=== PATIENT | male | born 1935 | race Caucasian/White ===

== ENCOUNTER 2022-05-02 15:22 | Observation (INO) ==
--- NOTE | 2022-05-02 15:32 | Emergency Department Note ---
Impression & Plan TIA (transient ischemic attack), Hypertension, Hypothyroidism ED Provider Note NAME: NAY LAWRENCE AGE: 87 SEX: M : 1935 ARRIVES VIA: Ambulance INFORMANT: Patient, ED PROVIDER(S): Carlos Kang MD Chief Complaint: Patient mentation, slurred speech HPI: Patient presents due to concern for chest pain and altered mental status. The patient does present from the painstakingly had some left-sided chest pain that lasted about 30 minutes. He did receive 324 of aspirin in route. No additional medications. The patient did have some changes in mentation to work sometimes he was awake and alert and other times not. BSG in route was in the 100s. Patient does state that he takes medication for history of hypertension but does not have his medication list with him and is unsure as to the extent of his meds and medical history given that he is from out of town from the [place] area currently visiting for the football game. Patient denies any current chest pains. The patient states that he might have some difficulty with his words. No prior history of stroke or mini stroke. Additional history was obtained from the daughters upon presentation. The patient was made a code stroke alert. Daughter stated that last known well was at 1:45 AM. The patient states he apparently was not feeling well was having some occasional slurred speech and complaints of some sensory changes in his left hand. Patient did have a loop recorder placed in October. 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 The patient is not on any aspirin Plavix or blood thinning medications. Patient did have intermittent changes in terms of consciousness and alertness. ROS: See HPI for pertinent positives and negatives. A total of 10 systems were reviewed and otherwise negative. Past medical history: See below Surgical history: See below Social history: See below Physical Exam: GENERAL: NAD, non-toxic. EYE EXAM: Normal conjunctiva. PERRL, no anisocoria and EOM's grossly intact w/o pain. NECK: Supple, no nuchal rigidity, no adenopathy, non-tender. No signs of meningismus. FROM of the neck with good chin to chest and neck extension. No stridor. LUNGS: Clear to auscultation. Normal chest wall mechanics. HEART: NSR, no MRG. ABDOMEN: Abdomen soft, non-tender, normo-active bowel sounds, no masses, no rebound or guarding. BACK: No CVA TTP. SKIN: No rashes and no bruising. UPPER EXTREMITIES: Upper extremities are grossly normal. LOWER EXTREMITIES: Grossly normal, no edema. NEURO EXAM: A&O x3, cranial nerves II-XII grossly intact, normal speech, occasionally changed words, moves all 4 extremities. [id number], no drift, no sensory deficits Differential diagnoses: Cardiac ischemia, aortic dissection, pulmonary embolism, pneumothorax, pneumonia, pericarditis, myocarditis, esophageal rupture, GERD, cholecystitis, pancreatitis, musculoskeletal, as well as other pathologies. Course: Patient was seen and evaluated the bedside. Full history physical exam was performed. EKG interpreted by me Normal sinus rhythm, rate of 72, normal intervals, left axis deviation, no obvious ST elevations. Imaging Studies: See Below Cardiac monitoring: An order was placed for continuous cardiac monitoring. The monitor shows a rate of 77 with sinus rhythm. MDM: Patient presents due to concern for chest pain as well as occasional difficulty with words. Code stroke was initiated. The patient did have CT head and CT angiography completed after the patient's creatinine was not elevated on [id number]. Patient CT head and CT angiography head and neck did not show any acute concerning findings. The patient does have some atherosclerosis but nothing intervene able. I did speak with Dr. Tucker initially who did evaluate the patient. After further discussion the patient is not a TNKase candidate. The patient was loaded with Plavix and already did receive aspirin. I did speak with the patient and family member about the findings as well as plan of care. I also did convey the recommendations to Dr. Su the admitting physician. MR brain ordered. This is pending at the time of admission. Past Med/Surg History Medical History Hypertension Hypothyroidism Surgical History History of loop recorder Family History Mother , He age 66 of an [place] Myocardial infarction Father , age 72 of an abdominal aortic aneurysm rupture AAA (abdominal aortic aneurysm, ruptured) Social History Smoking Status: Never smoker Hx Alcohol Use: No Hx Substance Use: No Preferred Language: Macedonian Communication Ability: Effective Car Builder Required: No Beliefs That Will Affect Care: None Current Living Situation: Alone Current Living Situation Comment: lives home alone totally independent with adls and drives current occupational status: retired 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63, [employer] elementary special education assistant Other Information That Helps Us Care for You: No Feels Safe at Home: Yes Safety Concerns: Feels Safe At This Time Assistive Devices: None Allergies Allergies Allergy/AdvReac Type Severity Reaction Status Date / Time No Known Allergies Allergy Unverified 05/02/22 18:05 Home Meds Home Medications Medication Instructions Recorded Confirmed alendronate 35 mg tablet 35 mg PO DAILY 05/02/22 05/02/22 ascorbic acid (vitamin C) 500 mg 500 mg PO DAILY 05/02/22 05/02/22 tablet (Vitamin C) atorvastatin 40 mg tablet 40 mg PO QPM 05/02/22 05/02/22 clopidogrel 75 mg tablet 75 mg PO DAILY 05/02/22 05/02/22 coenzyme Q10 100 mg capsule 200 mg PO DAILY 05/02/22 05/02/22 (CoQ-10) finasteride 5 mg tablet 5 mg PO DAILY 05/02/22 05/02/22 levothyroxine 100 mcg tablet 100 mcg PO DAILY 05/02/22 05/02/22 (Synthroid) magnesium oxide 500 mg tablet 500 mg PO [id number] 05/02/22 05/02/22 metoprolol tartrate 50 mg tablet 50 mg PO BID 05/02/22 05/02/22 multivitamin 1 tab PO DAILY 05/02/22 05/02/22 Previous Rx's Medication Instructions Recorded losartan 25 mg tablet 50 mg PO DAILY #60 tabs 05/03/22 Results & Data (ED) Vital Signs Vital Signs - 24 hr 05/02/22 15:33 05/02/22 15:32 05/02/22 15:46 Temperature 36.8 C Temperature Source Oral Pulse Rate 70 74 78 Pulse Rate from SpO2 Sensor 79 Respiratory Rate 22 20 20 Respiratory Effort / Characteristics Non-Labored Respiratory Depth Normal Blood Pressure 163/93 H 156/92 H 155/75 H Blood Pressure Mean 116 113 101 Blood Pressure Position Lying Pulse Oximetry 99 98 98 Oxygen Delivery Method Room Air Room Air Room Air Sepsis Recent Fever Within 48 Hours No Sepsis New/Unexplained Change in Mental Status No Sepsis Action Taken by Nursing No Action Required 05/02/22 16:00 05/02/22 16:18 05/02/22 16:30 Temperature Temperature Source Pulse Rate 76 84 86 Pulse Rate from SpO2 Sensor 75 85 Respiratory Rate 20 20 17 Respiratory Effort / Characteristics Respiratory Depth Blood Pressure 163/93 H 147/84 H 167/99 H Blood Pressure Mean 116 105 121 Blood Pressure Position Pulse Oximetry 98 98 95 Oxygen Delivery Method Room Air Room Air Room Air Sepsis Recent Fever Within 48 Hours Sepsis New/Unexplained Change in Mental Status Sepsis Action Taken by Long Term Medications Current Medication List: was personally reviewed by me Laboratory Data Attestation: I reviewed the patient's lab results. Result diagrams: 05/03/22 07:37 05/03/22 07:37 Lab Results 05/02/22 05/02/22 05/02/22 Range/Units 15:30 15:30 15:30 WBC 7.83 (4.8-10.8) K/ul RBC 4.43 L (4.63-6.08) M/uL Hgb 13.9 L (14.0-18.0) g/dl POC Hgb (14.0-18.0) g/dl Hct 40.6 (40.1-51.0) % POC Hct (42-52) % MCV 91.6 (80.0-100.0) fL MCH 31.4 (25.0-34.0) pg MCHC 34.2 (32.0-36.0) g/dL RDW Std Deviation 45.8 (36.4-46.3) fL RDW Coeff of Leslie 13.4 (11.5-14.5) % Plt Count 194 (130-400) K/uL MPV 10.4 (9.4-12.4) fL Immature Gran % (Auto) 0.1 % Neut % (Auto) 47.3 % Lymph % (Auto) 31.9 % Carson % (Auto) 14.6 % Eos % (Auto) 5.7 % Baso % (Auto) 0.4 % Neut # (Auto) 3.70 (1.4-6.5) K/uL Lymph # (Auto) 2.50 (1.2-3.4) K/uL Carson # (Auto) 1.14 H (0.24-0.82) K/uL Eos # (Auto) 0.45 (0-0.50) K/uL Baso # (Auto) 0.03 (0-0.2) K/uL Immature Gran # (Auto) 0.01 (0.00-0.02) K/uL PT 11.4 (9.0-12.0) Seconds INR 1.1 (0.9-1.1) APTT 23.6 (21.0-31.0) Seconds PTT Ratio 0.9 POC Sodium (135-144) mmol/L Sodium 136 (136-145) mmol/L POC Potassium (3.3-5.0) mmol/L Potassium 4.2 (3.5-5.1) mmol/L POC Chloride (101-112) mmol/L Chloride 104 (98-107) mmol/L Carbon Dioxide 22 (21-32) mmol/L POC Total CO2 (24-31) mmol/L Anion Gap 10 (3-11) POC Anion Gap (16-25) mmol/L POC BUN (7-18) mg/dl BUN 22 (6-23) mg/dl Creatinine 1.47 H (0.6-1.4) mg/dl POC Creatinine (0.6-1.3) mg/dl Est Cr Clr Drug Dosing 36.1 ml/min Est GFR ( Amer) 49.4 ml/min Est GFR (Non-Af Amer) 42.6 ml/min BUN/Creatinine Ratio 15.0 (10-20) Glucose 119 H (70-99(Fasting)) mg/dl POC Glucose (other) (70-99) mg/dl Calcium 9.5 (8.5-10.1) mg/dl POC Ioniz Calcium Lonny (1.12-1.32) mmol/l Magnesium 2.3 (1.7-2.4) mg/dl Total Bilirubin 0.8 (0.2-1.0) mg/dl AST 29 (13-39) U/L ALT 30 (7-52) U/L Alkaline Phosphatase 63 (34-104) U/L Troponin I High Sens 7.8 (0-20) pg/ml Total Protein 8.0 (6.0-8.3) gm/dl Albumin 4.3 (3.4-5.0) gm/dl Globulin 3.7 (2.5-4.0) gm/dl Albumin/Globulin Ratio 1.2 (0.9-2) Ethyl Alcohol mg/dL (<10.0) mg/dl SARS-CoV-2, RNA, NAAT (NEGATIVE) 05/02/22 05/02/22 05/02/22 Range/Units 15:30 16:01 16:35 WBC (4.8-10.8) K/ul RBC (4.63-6.08) M/uL Hgb (14.0-18.0) g/dl POC Hgb 14.6 (14.0-18.0) g/dl Hct (40.1-51.0) % POC Hct 43 (42-52) % MCV (80.0-100.0) fL MCH (25.0-34.0) pg MCHC (32.0-36.0) g/dL RDW Std Deviation (36.4-46.3) fL RDW Coeff of Leslie (11.5-14.5) % Plt Count (130-400) K/uL MPV (9.4-12.4) fL Immature Gran % (Auto) % Neut % (Auto) % Lymph % (Auto) % Carson % (Auto) % Eos % (Auto) % Baso % (Auto) % Neut # (Auto) (1.4-6.5) K/uL Lymph # (Auto) (1.2-3.4) K/uL Carson # (Auto) (0.24-0.82) K/uL Eos # (Auto) (0-0.50) K/uL Baso # (Auto) (0-0.2) K/uL Immature Gran # (Auto) (0.00-0.02) K/uL PT (9.0-12.0) Seconds INR (0.9-1.1) APTT (21.0-31.0) Seconds PTT Ratio POC Sodium 139 (135-144) mmol/L Sodium (136-145) mmol/L POC Potassium 4.3 (3.3-5.0) mmol/L Potassium (3.5-5.1) mmol/L POC Chloride 105 (101-112) mmol/L Chloride (98-107) mmol/L Carbon Dioxide (21-32) mmol/L POC Total CO2 23 L (24-31) mmol/L Anion Gap (3-11) POC Anion Gap 17.0 (16-25) mmol/L POC BUN 24 H (7-18) mg/dl BUN (6-23) mg/dl Creatinine (0.6-1.4) mg/dl POC Creatinine 1.3 (0.6-1.3) mg/dl Est Cr Clr Drug Dosing ml/min Est GFR ( Amer) ml/min Est GFR (Non-Af Amer) ml/min BUN/Creatinine Ratio (10-20) Glucose (70-99(Fasting)) mg/dl POC Glucose (other) 118 H (70-99) mg/dl Calcium (8.5-10.1) mg/dl POC Ioniz Calcium Lonny 1.19 (1.12-1.32) mmol/l Magnesium (1.7-2.4) mg/dl Total Bilirubin (0.2-1.0) mg/dl AST (13-39) U/L ALT (7-52) U/L Alkaline Phosphatase (34-104) U/L Troponin I High Sens (0-20) pg/ml Total Protein (6.0-8.3) gm/dl Albumin (3.4-5.0) gm/dl Globulin (2.5-4.0) gm/dl Albumin/Globulin Ratio (0.9-2) Ethyl Alcohol mg/dL < 10.0 (<10.0) mg/dl SARS-CoV-2, RNA, NAAT NEGATIVE (NEGATIVE) Administered Medications Atorvastatin Calcium (Atorvastatin 40 Mg Tab) 40 mg PO QPM ANNA Stop: 06/01/22 20:59 Last Admin: 05/02/22 21:09 Dose: 40 mg Documented By: MG Clopidogrel Bisulfate (Clopidogrel Bisulfate 75 Mg Tab) 75 mg PO QAM ANNA Stop: 06/02/22 08:59 Last Admin: 05/03/22 08:45 Dose: 75 mg Documented By: UTE Finasteride (Finasteride 5 Mg Tab) 5 mg PO DAILY ANNA Stop: 06/02/22 08:59 Last Admin: 05/03/22 08:46 Dose: 5 mg Documented By: UTE Heparin Sodium (Porcine) (Heparin Sod 5,000 Unit/0.5 Ml Vial) 5,000 units SQ Q12 ANNA Stop: 06/01/22 20:59 Last Admin: 05/03/22 08:46 Dose: 5,000 units Documented By: Admin: 05/02/22 21:10 Dose: 5,000 units Documented By: MG Levothyroxine Sodium (Levothyroxine Sodium 100 Mcg Tablet) 100 mcg PO DAILYBB ANNA Stop: 06/02/22 06:29 Last Admin: 05/03/22 06:38 Dose: 100 mcg Documented By: MG Losartan Potassium (Losartan Potassium 50 Mg Tab) 50 mg PO DAILY ANNA Stop: 06/02/22 11:29 Last Admin: 05/03/22 12:00 Dose: 50 mg Documented By: UTE Metoprolol Tartrate (Metoprolol Tartrate 50 Mg Tab) 50 mg PO BID ANNA Stop: 06/01/22 20:59 Last Admin: 05/03/22 08:45 Dose: 50 mg Documented By: Admin: 05/02/22 21:09 Dose: 50 mg Documented By: MG Miscellaneous (Alendronate 35mg: Order Awaiting Action) 1 each N/A QS ANNA Stop: 06/02/22 00:00 Last Admin: 05/03/22 07:23 Dose: Not Given Documented By: Admin: 05/02/22 23:31 Dose: Not Given Documented By: MG Discontinued Medications Clopidogrel Bisulfate (Clopidogrel Bisulfate 300 Mg Tab) 300 mg PO NOW STA Stop: 05/02/22 17:15 Last Admin: 05/02/22 19:29 Dose: 300 mg Documented By: VAIBHAV Ioversol (Optiray 300 500ml) 98 ml IV ONCE ONE Stop: 05/02/22 16:13 Last Admin: 05/02/22 16:13 Dose: 98 ml Documented By: GUY Imaging Data Radiologist's Impression: Chest X-Ray 05/02/22 15:49 XR chest 1V portable CLINICAL HISTORY: Stroke Like Symptoms COMPARISON STUDY: No previous studies for comparison. FINDINGS: Lower neck/upper medial spinal surgical clips are incidentally noted. There are cardiac monitoring device. Lungs are mildly diminished. Linear left basilar opacity reflects atelectasis. No consolidation to suggest pneumonia. Cardiac size is at the upper limits of normal. There is no evidence for pulmonary edema. IMPRESSION: No acute cardiopulmonary findings. ACT 112: Negative or not required by law. Electronically signed by: Guillermo Sidhu M.D. 05/02/2022 4:[address] 05/02/22 15:49 CT OF THE HEAD WITHOUT CONTRAST CLINICAL HISTORY: Stroke Like Symptoms COMPARISON STUDY: No previous studies for comparison. TECHNIQUE: Helical axial images of the head were obtained without IV contrast. Automated exposure control was utilized for the study. A dose lowering technique was utilized adhering to the principles of ALARA. FINDINGS: No acute intracranial hemorrhage, midline shift or mass effect is present. White matter hypodensity suggests small vessel disease. 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 The ventricular system is unremarkable. The basal cisterns are patent. No extra- axial collections are present. There are no findings to suggest acute dural sinus thrombosis or acute territorial infarct. No significant calvarial abnormalities are present. Visualized portions of the sinuses and mastoid air cells are clear. IMPRESSION: 1. No acute intracranial findings. 2. 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 3. White matter hypodensities suggestive of small vessel disease. ACT 112: Negative or not required by law. Electronically signed by: Guillermo Sidhu M.D. 05/02/2022 4:21 PM Head CTA 05/02/22 15:49 CTA ANGIOGRAPHY OF THE HEAD CLINICAL HISTORY: Stroke Like Symptoms COMPARISON STUDY: No previous studies for comparison. TECHNIQUE: Helical axial images of the head were obtained following uneventful intravenous administration of 98 cc of Optiray. Sagittal and coronal reconstru ctions were viewed as well as maximal intensity projections on an independent 3- D workstation. Automated exposure control was utilized for the study. A dose lowering technique was utilized adhering to the principles of ALARA. CT DOSE: 1156.90 mGy.cm FINDINGS: Please note that the head CT will be reported separately. There is moderate plaque within the bilateral cavernous carotids without stenosis. Note is made of moderate stenoses of several sylvian branches of the left middle cerebral artery. However, no abrupt vessel cut off is identified. No intracranial aneurysm is identified. Left vertebral artery is dominant. Posterio r circulation is intact. There is no dissection or aneurysm within the intracranial vessels. IMPRESSION: 1. No central vessel occlusion. No intracranial aneurysm. 2. 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 However, no vessel cut off identified. 2. Moderate plaque within the bilateral cavernous carotids without significant stenosis. ACT 112: Negative or not required by law. Electronically signed by: Guillermo Sidhu M.D. 05/02/2022 4:38 PM Neck CTA 05/02/22 15:49 CT ANGIOGRAPHY OF THE NECK WITH CONTRAST CLINICAL HISTORY: Stroke Like Symptoms COMPARISON STUDY: No previous studies for comparison. Technique: CT angiography of the carotid and vertebral arteries was obtained using Optiray and 3D reconstruction on an independent workstation. NASCET criteria was utilized. Automated exposure control was utilized for the study. A dose lowering technique was utilized adhering to the principles of ALARA. Findings: Visualized portions of the lung apices are unremarkable. Thyroid gland is surgically absent. There is no cervical lymphadenopathy. No acute cervical spine fracture is noted. The origins of the bilateral vertebral arteries are suboptimally assessed due to artifact. There is suggestion of mild stenosis at the origin of the bilateral vertebral arteries. The left vertebral artery is dominant. There is moderate stenosis of the intracranial portion of the right vertebral artery. There is moderate plaque within the right carotid bifurcation without stenosis. The cervical right internal carotid artery is tortuous. There is no aneurysm or dissection within the major vessels of the neck. There is mild plaque within the left carotid bifurcation. IMPRESSION: 1. No significant stenoses within the bilateral common carotid or cervical internal carotid arteries. Moderate plaque within the right carotid bifurcation without stenosis. Tortuous cervical right internal carotid artery. 2. 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 Suspected mild stenoses at the origins of the bilateral vertebral arteries. ACT 112: Negative or not required by law. Electronically signed by: Guillermo Sidhu M.D. 05/02/2022 4:34 PM Discharge Plan Visit Data Chief Complaint: TIA Symptoms ED Provider: Carlos Kang Discharge Problem: TIA (transient ischemic attack), Hypertension, Hypothyroidism Patient Disposition: Admitted As Inpatient Discharge Instructions Interventions: ED Discharge Assessment Last Done: 05/02/22 19:32
[2022-05-02] MEDS ORDERED: OPTIRAY 300 500mL IV ONE (16:12)
--- NOTE | 2022-05-02 16:12 | XRay Report ---
XR chest 1V portable CLINICAL HISTORY: Stroke Like Symptoms COMPARISON STUDY: No previous studies for comparison. FINDINGS: Lower neck/upper medial spinal surgical clips are incidentally noted. There are cardiac mon itoring device. Lungs are mildly diminished. Linear left basilar opacity reflects atelectasis. No con solidation to suggest pneumonia. Cardiac size is at the upper limits of normal. There is no evidence for pulmonary edema. IMPRESSION: No acute cardiopulmonary findings. ACT 112: Negative or not required by law. Electronically signed by: Guillermo Sidhu M.D. 05/02/2022 4:11 PM
[2022-05-02 16:13] LABS: iSTAT Creatinine 1.3 mg/dl (0.6-1.3); iSTAT Hemoglobin 14.6 g/dl (14.0-18.0); iSTAT Ionized Calcium 1.19 mmol/l (1.12-1.32); iSTAT Potassium 4.3 mmol/L (3.3-5.0)
[2022-05-02 16:22] LABS: Basophils # (auto) 0.03 K/uL (0-0.2); Basophils % (auto) 0.4 %; Eosinophils # (auto) 0.45 K/uL (0-0.50); Eosinophils % (auto) 5.7 %; Hematocrit (blood only) 40.6 % (40.1-51.0); Hemoglobin 13.9 g/dl (14.0-18.0); Immature Granulocytes # (auto) 0.01 K/uL (0.00-0.02); Immature Granulocytes % (auto) 0.1 %; Lymphocytes % (auto) 31.9 %; Mean Corpuscular Hemoglobin 31.4 pg (25.0-34.0); Mean Corpuscular Hgb Conc 34.2 g/dL (32.0-36.0); Mean Corpuscular Volume 91.6 fL (80.0-100.0); Mean Platelet Volume 10.4 fL (9.4-12.4); Monocytes # (auto) 1.14 K/uL (0.24-0.82); Monocytes % (auto) 14.6 %; Neutrophils % (auto) 47.3 %; Platelet Count 194 K/uL (130-400); RDW Coefficient of Variation 13.4 % (11.5-14.5); RDW Standard Deviation 45.8 fL (36.4-46.3); Red Blood Count 4.43 M/uL (4.63-6.08); White Blood Count 7.83 K/ul (4.8-10.8)
--- NOTE | 2022-05-02 16:23 | CT Scan Report ---
CT OF THE HEAD WITHOUT CONTRAST CLINICAL HISTORY: Stroke Like Symptoms COMPARISON STUDY: No previous studies for comparison. TECHNIQUE: Helical axial images of the head were obtained without IV contrast. Automated exposure con trol was utilized for the study. A dose lowering technique was utilized adhering to the principles o f ALARA. FINDINGS: No acute intracranial hemorrhage, midline shift or mass effect is present. White matter hyp odensity suggests small vessel disease. Small focus of encephalomalacia within the left occipital lob e suggests an old infarct. The ventricular system is unremarkable. The basal cisterns are patent. No extra-axial collections are present. There are no findings to suggest acute dural sinus thrombosis or acute territorial infarct. No significant calvarial abnormalities are present. Visualized portions o f the sinuses and mastoid air cells are clear. IMPRESSION: 1. No acute intracranial findings. 2. 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 3. White matter hypodensities suggestive of small vessel disease. ACT 112: Negative or not required by law. Electronically signed by: Guillermo Sidhu M.D. 05/02/2022 4:21 PM
[2022-05-02 16:36] LABS: INR 1.1 (0.9-1.1); Partial Thromboplastin Ratio 0.9; Partial Thromboplastin Time 23.6 Seconds (21.0-31.0); Prothrombin Time 11.4 Seconds (9.0-12.0)
--- NOTE | 2022-05-02 16:36 | CT Scan Report ---
CT ANGIOGRAPHY OF THE NECK WITH CONTRAST CLINICAL HISTORY: Stroke Like Symptoms COMPARISON STUDY: No previous studies for comparison. Technique: CT angiography of the carotid and vertebral arteries was obtained using Optiray and 3D rec onstruction on an independent workstation. NASCET criteria was utilized. Automated exposure control was utilized for the study. A dose lowering technique was utilized adhering to the principles of ALA RA. Findings: Visualized portions of the lung apices are unremarkable. Thyroid gland is surgically absent . There is no cervical lymphadenopathy. No acute cervical spine fracture is noted. The origins of the bilateral vertebral arteries are suboptimally assessed due to artifact. There is suggestion of mild stenosis at the origin of the bilateral vertebral arteries. The left vertebral artery is dominant. Th ere is moderate stenosis of the intracranial portion of the right vertebral artery. There is moderate plaque within the right carotid bifurcation without stenosis. The cervical right internal carotid ar roxie is tortuous. There is no aneurysm or dissection within the major vessels of the neck. There is m ild plaque within the left carotid bifurcation. IMPRESSION: 1. No significant stenoses within the bilateral common carotid or cervical internal carotid arteries. Moderate plaque within the right carotid bifurcation without stenosis. Tortuous cervical right inter nal carotid artery. 2. 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 Suspected mild stenos es at the origins of the bilateral vertebral arteries. ACT 112: Negative or not required by law. Electronically signed by: Guillermo Sidhu M.D. 05/02/2022 4:34 PM
[2022-05-02 16:39] LABS: Troponin I High Sensitivity 7.8 pg/ml (0-20)
--- NOTE | 2022-05-02 16:41 | CT Scan Report ---
CTA ANGIOGRAPHY OF THE HEAD CLINICAL HISTORY: Stroke Like Symptoms COMPARISON STUDY: No previous studies for comparison. TECHNIQUE: Helical axial images of the head were obtained following uneventful intravenous administr ation of 98 cc of Optiray. Sagittal and coronal reconstructions were viewed as well as maximal intens ity projections on an independent 3-D workstation. Automated exposure control was utilized for the anusha lopez. A dose lowering technique was utilized adhering to the principles of ALARA. CT DOSE: 1156.90 mGy.cm FINDINGS: Please note that the head CT will be reported separately. There is moderate plaque within t he bilateral cavernous carotids without stenosis. Note is made of moderate stenoses of several bhavesh n branches of the left middle cerebral artery. However, no abrupt vessel cut off is identified. No in tracranial aneurysm is identified. Left vertebral artery is dominant. Posterior circulation is intact . There is no dissection or aneurysm within the intracranial vessels. IMPRESSION: 1. No central vessel occlusion. No intracranial aneurysm. 2. 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 However, no vess el cut off identified. 2. Moderate plaque within the bilateral cavernous carotids without significant stenosis. ACT 112: Negative or not required by law. Electronically signed by: Guillermo Sidhu M.D. 05/02/2022 4:38 PM
[2022-05-02 16:43] LABS: Albumin Globulin Ratio 1.2 (0.9-2); Albumin Level 4.3 gm/dl (3.4-5.0); Bilirubin,Total 0.8 mg/dl (0.2-1.0); Calcium 9.5 mg/dl (8.5-10.1); Creatinine Clr Calc Pharmacy 36.1 ml/min; Est GFR (African American) 49.4 ml/min; Est GFR (Non-African American) 42.6 ml/min; Globulin 3.7 gm/dl (2.5-4.0); Magnesium 2.3 mg/dl (1.7-2.4); Potassium 4.2 mmol/L (3.5-5.1)
[2022-05-02] MEDS ORDERED: CLOPIDOGREL BISULFATE 300 MG TAB PO STA (17:14)
[2022-05-02] MEDS ORDERED: PHARMACIST DISCHARGE MED REC CONSULT PRN (17:59)
[2022-05-02] MEDS ORDERED: MAGNESIUM HYDROXIDE SUSP 30 ML UDC PO PRN (18:06)
[2022-05-02] MEDS ORDERED: ACETAMINOPHEN 325 MG TAB PO PRN (18:06)
[2022-05-02] MEDS ORDERED: POLYETHYLENE (MIRALAX) 17 GM PACK PO PRN (18:06)
--- NOTE | 2022-05-02 18:12 | History & Physical Report ---
Date of Service May 02, 2022 Assessment & Plan (1) TIA (transient ischemic attack): Plan Likely TIA Near syncope chest discomfort: as in HPI, trop and EKG at admission wnl, trend trop and consider cards if w/ trop elevation or dysrythmia in tele. EKG in AM. 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 eval, as needed IV meds for blood pressure greater than 180 mmHg. Monitor and replete electrolytes Creatinine of 1.47, given normal BUN, I would assume this is his new/recent baseline creatinine, outpatient chart review with creatinine of 0.82-1.04 in 2018. Follow BMP in a.m. Other chronic medical conditions: Meds reviewed with the patient, continue with home meds as and when appropriate. DVT prophylaxis: Heparin subcu Full code History of Present Illness Chief Complaint: Strokelike symptoms Primary Care Provider: NO PCP 87-year-old male with PMH of recurrent TIAs, concern for arrhythmia s/p loop recorder, bilateral carotid disease, AAA presented to our ED 05/02 from [facility] with strokelike symptoms. Patient was sitting and watching games when he started feeling discomfort in his hip and left chest, he did not feel well, could not describe his feeling, when he stood up he started to pass out after walking 10 to 15 feet, EMT were nearby, sat him in chair, after he got evaluated by EMT he felt little better but then he had slurring of speech which improved by the time he reached to our ED. Patient also complains of tingling/decreased sensation in his left fingers which lasted for around 15- minute. Patient denies any headache/dizziness/chest pain/palpitations/belly pain/fever/chills/cough/acute changes in bowel or bladder habit in the last 1 week. Some chest discomfort and dizziness during the event today per patient. Patient denies use of tobacco/alcohol/recreational drugs. Full code, medical PORohini Be [patient's daughter] No personal history of blood clot or cancer. Medications reviewed with the patient. Family history of AAA in father and some heart disorder in mother. Allergies Allergy/AdvReac Type Severity Reaction Status Date / Time No Known Allergies Allergy Unverified 05/02/22 18:05 Home Medications Medication Instructions Recorded Confirmed Type alendronate 35 mg tablet 35 mg PO DAILY 05/02/22 05/02/22 History ascorbic acid (vitamin C) 500 mg 500 mg PO DAILY 05/02/22 05/02/22 History tablet (Vitamin C) atorvastatin 40 mg tablet 40 mg PO QID 05/02/22 05/02/22 History clopidogrel 75 mg tablet 75 mg PO DAILY 05/02/22 05/02/22 History coenzyme Q10 100 mg capsule 200 mg PO DAILY 05/02/22 05/02/22 History (CoQ-10) finasteride 5 mg tablet 5 mg PO DAILY 05/02/22 05/02/22 History levothyroxine 100 mcg tablet 100 mcg PO DAILY 05/02/22 05/02/22 History (Synthroid) losartan 25 mg tablet 25 mg PO DAILY 05/02/22 05/02/22 History magnesium oxide 500 mg tablet 500 mg PO 3XWK 05/02/22 05/02/22 History metoprolol tartrate 50 mg tablet 50 mg PO BID 05/02/22 05/02/22 History multivitamin 1 tab PO DAILY 05/02/22 05/02/22 History Past Med/Surg History Social History Smoking Status: Never smoker Review of Systems Review of Systems: Negative otherwise mentioned in HPI. Physical Exam Physical Exam: GENERAL: Alert and oriented x3. NAD, on RA. HEENT: No pallor, no icterus. Pupils equal, round and reactive to light. Oral mucosa moist. NECK: No JVD, no neck masses. HEART: S1 and S2 heard. Regular rate and rhythm. + SM at A and P, no gallop. RESPIRATORY SYSTEM: Normal AP diameter. No accessory muscle use. No wheezing, no crackles. ABDOMEN: Soft, bowel sounds present, nontender, no distention. CENTRAL NERVOUS SYSTEM: No facial droop. Speech is clear. Obeys simple commands. Moves extremities. EXTREMITIES: No edema, no erythema seen. Results & Data Results & Data ([facility]) Vital Signs (Past 12 Hours) Vital Signs Temp Pulse Resp BP Pulse Ox O2 Del Method 05/02/22 16:30 86 17 167/99 H 95 Room Air 05/02/22 16:18 84 20 147/84 H 98 Room Air 05/02/22 16:00 76 20 163/93 H 98 Room Air 05/02/22 15:46 78 20 155/75 H 98 Room Air 05/02/22 15:32 74 20 156/92 H 98 Room Air 05/02/22 15:33 36.8 C 70 22 163/93 H 99 Room Air
--- NOTE | 2022-05-02 19:42 | Magnetic Resonance Report ---
MRI OF THE BRAIN WITHOUT CONTRAST CLINICAL HISTORY: TIA symptoms COMPARISON STUDY: Head CT and CTA of the head performed earlier today. TECHNIQUE: Utilizing a 1.5 Lela magnet and dedicated coil, multiplanar, multiecho imaging of the bra in was performed without IV contrast. FINDINGS: There are no foci of restricted diffusion to suggest acute infarct. No acute intracranial h emorrhage, midline shift or mass effect is present. Ventricular system is unremarkable. Basal cistern s are patent. There are no extra-axial collections. No intracranial masses are identified on this une nhanced exam. A small focus of encephalomalacia within the left occipital lobe represents an old infa rct. White matter T2 hyperintense foci represent small vessel disease. There is no calvarial marrow r eplacement. Flow-voids for the major intracranial vessels are present. IMPRESSION: 1. No acute intracranial findings. 2. 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 3. White matter T2 hyperintense foci suggestive of small vessel disease. ACT 112: Negative or not required by law. Electronically signed by: Guillermo Sidhu M.D. 05/02/2022 7:40 PM
[2022-05-02] MEDS ORDERED: LABETALOL HCL IV 5 MG/ML 20ML IV PRN (20:14)
[2022-05-02] MEDS ORDERED: ATORVASTATIN 40 MG TAB PO SCH (21:00)
[2022-05-02] MEDS: METOPROLOL TARTRATE 50 MG TAB PO SCH (21:09)
[2022-05-02] MEDS: HEPARIN SOD 5,000 UNIT/0.5 ML VIAL SQ SCH (21:10)
[2022-05-03] MEDS ORDERED: LEVOTHYROXINE SODIUM 100 MCG TABLET PO SCH (06:30)
[2022-05-03 08:08] LABS: Basophils # (auto) 0.04 K/uL (0-0.2); Basophils % (auto) 0.6 %; Eosinophils # (auto) 0.43 K/uL (0-0.50); Eosinophils % (auto) 6.3 %; Hematocrit (blood only) 36.6 % (40.1-51.0); Immature Granulocytes # (auto) 0.01 K/uL (0.00-0.02); Immature Granulocytes % (auto) 0.1 %; Lymphocytes # (auto) 2.26 K/uL (1.2-3.4); Lymphocytes % (auto) 32.9 %; Mean Corpuscular Hemoglobin 31.8 pg (25.0-34.0); Mean Corpuscular Hgb Conc 35.5 g/dL (32.0-36.0); Mean Corpuscular Volume 89.5 fL (80.0-100.0); Mean Platelet Volume 10.1 fL (9.4-12.4); Monocytes % (auto) 13.1 %; Neutrophils # (auto) 3.22 K/uL (1.4-6.5); Platelet Count 164 K/uL (130-400); RDW Coefficient of Variation 13.4 % (11.5-14.5); RDW Standard Deviation 43.9 fL (36.4-46.3); Red Blood Count 4.09 M/uL (4.63-6.08); White Blood Count 6.86 K/ul (4.8-10.8)
[2022-05-03 08:43] LABS: BUN Creatinine Ratio 19.4 (10-20); Calcium 8.6 mg/dl (8.5-10.1); Chol HDL Ratio 4.1 (0-5); Creatinine Clr Calc Pharmacy 55.2 ml/min; Est GFR (African American) 85.9 ml/min; Est GFR (Non-African American) 74.1 ml/min; Potassium 4.2 mmol/L (3.5-5.1)
[2022-05-03] MEDS: METOPROLOL TARTRATE 50 MG TAB PO SCH (08:45)
[2022-05-03] MEDS: HEPARIN SOD 5,000 UNIT/0.5 ML VIAL SQ SCH (08:46)
[2022-05-03] MEDS ORDERED: NON-FORMULARY MEDICATION (Coenzyme Q10 [Coq-10] 100 mg Capsule) PO SCH (09:00)
[2022-05-03] MEDS ORDERED: CLOPIDOGREL BISULFATE 75 MG TAB PO SCH (09:00)
[2022-05-03] MEDS ORDERED: FINASTERIDE 5 MG TAB PO SCH (09:00)
--- NOTE | 2022-05-03 09:07 | Neurology Consultation ---
Date of Consultation May 03, 2022 Assessment & Plan (1) TIA (transient ischemic attack): (2) Hypertension: (3) Chronic cerebral ischemia: Plan this patient had an episode of left chest pain, left hand numbness (lasting 30 minutes) and some transient speech problems May 02. He was noted to be hypertensive in the emergency room and on the floor (current blood pressure is 168/81) but currently is asymptomatic with no focal findings, meningeal signs, or encephalopathy. The etiology of his symptoms is likely related to hypertension /vasospasms and transient perfusion deficits in the brain. He has chronic, scattered, cerebral vascular stenoses on CT angiography and moderate old small vessel ischemia diffusely in the white matter on MRI. His symptoms occurred despite clopidogrel 75 mg daily. MRI did not show a stroke and I am not sure I would classify this as a typical "TIA". He is having multiple episodes and I am wondering if it isn't more related to transient cerebral perfusion issues secondary to fluctuating hypertension. Recommendations: 1. Continue clopidogrel 75 mg daily. 2. Awaiting echocardiogram. 3. control blood pressure as you are doing, aiming for a mean arterial pressure of 95-100. 4. This patient is not a high dose statin candidate and has a very controlled cholesterol on 40 mg of atorvastatin. 5. I have no further neurologic testing or treatment recommendations to make at this time. He will return to the [facility] and has clinicians there. Overall, I spent a total of 75 minutes with this case including review of records, review of MRI and CT films, direct evaluation the patient at bedside, and discussion of the case with the patient and RN at bedside, and Dr. Little, including differential diagnosis and treatment options. History of Present Illness Reason for Consultation: patient is an 87-year-old, who I was asked to see at the request of Dr. Su, for neurologic consultation regarding TIA versus stroke. Requesting Physician: Dr. Su Attending Physician: Sandor Little MD History of Present Illness Patient has a longstanding history of hypertension on losartan and metoprolol. He does not have a history of diabetes or significant heart disease. he lives in the [facility]. This patient had an episode of vision loss to the right in both eyes, lasting days, about 20 years ago. over the last 2 years or so he has had 4-5 episodes of word-finding difficulty. He will have the sudden onset of not be able to get the words out that he wants to say. He knows this is occurring and this will last minutes and then resolve. He has seen clinicians at [facility] and as an outpatient, and has had a number of tests over time. He has never had any strokes that anyone can identify. he was on 81 mg aspirin for 1-2 years and then, earlier this year, he was switched to 75 mg clopidogrel Daily. He takes his medication regularly. He believes that his blood pressure has been elevated quite variably over the last year or so. On May 01 he went to the gym ([employer]) as usual for his 1 hour of aerobic and resistance training routine. He then cut the grass. He felt tired after this. He was brought to the [employer] football game yesterday and had to walk "at least a half a mile" to get to the stadium from where they parked. He was quite tired when he got to the stadium. Around 130-145 or so in the afternoon, he had the onset of left chest pain. This lasted about 30 minutes. He also noted left hand numbness and tingling in the middle digits which lasted about 30 minutes. He told his daughters, who were present, that he did feel well and the got up to leave. He does not remember much and thinks he may have passed out. There is no evidence of syncope or loss of consciousness in the notes. He was taken by ambulance to the hospital and has some recall of ambulance ride over. His speech was somewhat slurred during that time. He arrived to the emergency room May 02 at 1533 with a temperature 36.8, pulse 70 regular, respiratory rate 22, blood pressure 163/93, and O2 saturation 99%. His blood pressure remains somewhat elevated in the emergency room. His neurologic examination was largely unremarkable. He had no focal findings , meningeal signs, or encephalopathy. NIH stroke scale score was 0. he was given a Plavix loading dose of [address] scan of the head showed old left occipital infarct and some small vessel ischemic disease. Chest x-ray was unremarkable. CT angiography of the head and neck reveals some moderate stenosis of the intracranial portion of the right vertebral artery and some mild stenoses at the origins of the vertebral arteries bilaterally. In addition, there was some stenosis of some of the sylvian branches of the left middle cerebral artery with no obvious vessel cut off. The cavernous carotid arteries had some plaque bilaterally without significant stenosis. MRI of the brain showed no acute stroke. There was an old left occipital infarct and moderate old small vessel ischemic disease diffusely in the white matter. There was moderate generalized atrophy as well. I reviewed all of these films. This morning, CBC was unremarkable except for some slight anemia, and Chem profile was unremarkable. Hemoglobin A1c is pending. Total cholesterol was 118. Triglycerides 113. he is on atorvastatin 40 mg a day. This morning he is asymptomatic with no speech problem, numbness or tingling, pain or headache, confusion, or gait disturbance. Patient feels that his memory has been somewhat off short-term for several years now. He will walk into a room and forget why he went there and he can forget names. He is functioning fairly highly however. The patient feels that he has a little bit of balance issues but has not fallen. He does exercise at the gym for 1 hour every Wednesday and Wednesday. He does weights, treadmill, elliptical. Allergies Allergy/AdvReac Type Severity Reaction Status Date / Time No Known Allergies Allergy Unverified 05/02/22 18:05 Home Medications Medication Instructions Recorded Confirmed Type alendronate 35 mg tablet 35 mg PO DAILY 05/02/22 05/02/22 History ascorbic acid (vitamin C) 500 mg 500 mg PO DAILY 05/02/22 05/02/22 History tablet (Vitamin C) atorvastatin 40 mg tablet 40 mg PO QPM 05/02/22 05/02/22 History clopidogrel 75 mg tablet 75 mg PO DAILY 05/02/22 05/02/22 History coenzyme Q10 100 mg capsule 200 mg PO DAILY 05/02/22 05/02/22 History (CoQ-10) finasteride 5 mg tablet 5 mg PO DAILY 05/02/22 05/02/22 History levothyroxine 100 mcg tablet 100 mcg PO DAILY 05/02/22 05/02/22 History (Synthroid) losartan 25 mg tablet 25 mg PO DAILY 05/02/22 05/02/22 History magnesium oxide 500 mg tablet 500 mg PO 3XWK 05/02/22 05/02/22 History metoprolol tartrate 50 mg tablet 50 mg PO BID 05/02/22 05/02/22 History multivitamin 1 tab PO DAILY 05/02/22 05/02/22 History Patient History Medical History (Updated 05/03/22 @ 09:00 by Bryce Chu MD) Hypertension Hypothyroidism Family History Mother , He age 66 of an HI Myocardial infarction Father , age 72 of an abdominal aortic aneurysm rupture AAA (abdominal aortic aneurysm, ruptured) Social History Smoking Status: Never smoker Hx Alcohol Use: No Hx Substance Use: No Preferred Language: Tajik Communication Ability: Effective Customer Assistance Associate Required: No Beliefs That Will Affect Care: None Current Living Situation: Alone Current Living Situation Comment: lives home alone totally independent with adls and drives current occupational status: retired 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63, [employer] regional education coordinator Other Information That Helps Us Care for You: No Feels Safe at Home: Yes Safety Concerns: Feels Safe At This Time Assistive Devices: None Review of Systems Constitutional: no fever, no fatigue and no weakness Eyes: no diplopia, no eye pain and no worsening vision Ear, Nose, Mouth, Throat: no ear pain, no tinnitus, no hearing loss, no dizziness, no snoring, no hoarseness and no dysphagia Respiratory: no cough and no dyspnea Cardiovascular: no chest pain, no palpitations and no lightheadedness Gastrointestinal: no abdominal pain, no nausea and no vomiting Musculoskeletal: no back pain, no neck pain, no radicular pain, no joint pain and no myalgia Integumentary: no rash and no lesions Neurologic: no gait abnormality, no localized weakness, no generalized weakness, no tingling, no numbness, no tremor(s), no abnormal movements, no headache(s), no abnormal speech, no confusion and no memory loss Psychiatric: no depression, no irritability, no anxiety, no difficulty concentrating, no confusion and no hallucinations Endocrine: no fatigue and no flushing Hematologic / Lymphatic: no easy bleeding and no easy bruising Allergy / Immunological: no urticaria and no problem reported Exam (Neuro) Physical Exam: The patient is right-handed. The patient is awake, alert, and attentive. Speech is normal without any aphasia or dysarthria. The patient can name objects, repeat phrases, and has normal spontaneous speech. Mentation and thought processes are intact, with orientation to person, place and time, and normal fund of knowledge. Attention and concentration are normal. Mood and affect are normal and appropriate. General appearance and grooming are normal. long-term memory and medium term memory seemed very intact. There may be a few short-term memory issues and there is some lack of memory of events new in the transport from the stadium to the hospital Pupils are 4 mm bilaterally and reactive to light. Extraocular eye muscles are intact without nystagmus. Visual acuity and visual larose seem normal grossly to confrontation. There are no deficits to sensation in the face in all 3 distributions of the fifth cranial nerve bilaterally. Corneal reflexes are positive bilaterally. Facial strength and symmetry was normal bilaterally. Hearing seems normal bilaterally. Palate moves well without asymmetry. There is normal sternocleidomastoid and trapezius (shoulder shrug) strength bilaterally. Tongue is midline with good strength bilaterally. Neck has a full range of motion without discomfort. There are no cervical bruits bilaterally. There are no cranial or ocular bruits. Heart is without murmur. There is a regular rhythm and rate. Cervical, thoracic, and lumbar spine are nontender to palpation. Gait was not tested, but stance sitting up in bed is quite normal. With outstretched arms there is no drift. There are no resting, postural, or action tremors. There is no ataxia with finger to nose testing. There is good facility in the hands. No other abnormal involuntary movements are noted. Motor strength is 5/5 diffusely in the arms bilaterally including deltoids, biceps, triceps, brachioradialis, wrist flexors and extensors, information resources director, and intrinsic hand muscles. Motor strength is 5/5 diffusely in the legs bilaterally including hip flexors, quadriceps, hamstrings, gastrocnemius, tibialis anterior, tibialis posterior, and Peroneii muscles. Toe extensors are normal and there is good bulk in the extensor digitorum brevis muscles bilaterally. The limbs have good tone without rigidity or spasticity. There is no atrophy noted in the muscles. Muscle bulk is normal, there is no tenderness to palpation, no myotonia to percussion, and no fasciculations seen. Sensory examination is intact to touch and pin throughout all 4 limbs diffusely. Reflexes are 1/4 in the biceps, triceps, brachioradialis, and quadriceps tendons bilaterally. Achilles tendon reflexes are absent bilaterally. There is no clonus bilaterally. Toes are downgoing with plantar stimulation bilaterally. Peripheral pulses are present and of normal quality distally in all 4 limbs. There is no peripheral edema noted in the limbs. Results & Data ([facility]) Vital Signs (Past 12 Hours) Vital Signs Temp Pulse Pulse Resp BP Pulse Ox O2 Del Method 05/03/22 07:43 36.9 C 74 18 168/81 H 96 Room Air 05/03/22 07:27 69 05/03/22 04:19 36.9 C 64 20 154/82 H 96 Room Air 05/02/22 23:00 36.6 C 69 18 134/72 96 Room Air 05/02/22 22:10 72 PG Care Time/CCT Total # of Minutes Spent Total Time Spent with Patient: Total time spent is greater than 50% in coordination of care (as documented) at patient's floor/unit and/or counseling patient: Coding Level of Care Code 78505 Initial Inpt Care Lvl 3 Diagnoses TIA (transient ischemic attack) G45.9 Hypertension I10 Chronic cerebral ischemia I67.82 Time Spent (min) 75
[2022-05-03] MEDS ORDERED: LOSARTAN POTASSIUM 50 MG TAB PO SCH (11:30)
[2022-05-03] MEDS ORDERED: LOSARTAN POTASSIUM 25 MG TAB PO SCH (11:30)
--- NOTE | 2022-05-03 11:51 | Hospitalist Progress Note ---
Date of Service May 03, 2022 Assessment & Plan (1) TIA (transient ischemic attack): Plan TIA Near syncope --MRI Brain:No acute intracranial findings. 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 White matter T2 hyperintense foci suggestive of small vessel disease. --Head CTA:No central vessel occlusion. No intracranial aneurysm. 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 However, no vessel cut off identified. Moderate plaque within the bilateral cavernous carotids without significant stenosis. --Neck CTA:No significant stenoses within the bilateral common carotid or cer vical internal carotid arteries. Moderate plaque within the right carotid bifurcation without stenosis. Tortuous cervical right internal carotid artery. 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 Suspected mild stenoses at the origins of the bilateral vertebral arteries. --ECHO pending --LDL 66 --Symptoms resolved --Appreciate Neurology Input --Continue Plavix, Lipitor --PT/OT eval --Will increase losartan to 50mg daily for better BP control --Needs follow up with Neurology upon discharge Acute Kidney Injury Cr: 1.4>>0.93 Likely prerenal Monitor renal function Avoid Nephrotoxic agents as able Hypertension Continue metoprolol Increase losartan to 50 mg daily for better blood pressure control Hypothyroidism Continue levothyroxine BPH On Proscar DVT Px: Heparin SQ Code Status Full code Admission and Anticipated Discharge Date Admission Date: May 02, 2022 Subjective Patient is seen and examined at bedside Doing well today Speech clear, no swallowing issues currently Denies any focal weakness Also denies any chest pain, dyspnea, dizziness, nausea, abdominal pain Offers no other complaint Discussed with neurology today Review of Systems Review of Systems: All systems reviewed & are unremarkable except as noted in Subjective Physical Exam Physical Exam: Physical Exam: Vitals signs as noted above General Appearance:Moderately built and nourished, no apparent distress Head: normocephalic, Atraumatic Eyes: normal inspection, EOMI Neck: supple, Trachea midline Respiratory/Chest: Normal breath sounds, CTA, No accessory muscle use Cardiovascular: S1, S2, + murmur Abdomen/GI:Soft, Non tender, Bowel sounds present Extremities/Musculoskeletal:normal inspection, no edema Neurologic/Psych:AAOX3, grossly no focal neurological deficits Skin: normal color, warm Results & Data Results & Data ([facility]) Vital Signs (Past 12 Hours) Vital Signs Temp Pulse Pulse Resp BP Pulse Ox O2 Del Method 05/03/22 07:43 36.9 C 74 18 168/81 H 96 Room Air 05/03/22 07:27 69 05/03/22 04:19 36.9 C 64 20 154/82 H 96 Room Air Laboratory Results Short CBC 05/02/22 05/03/22 Range/Units 15:30 07:37 WBC 7.83 6.86 (4.8-10.8) K/ul Hgb 13.9 L 13.0 L (14.0-18.0) g/dl Hct 40.6 36.6 L (40.1-51.0) % Plt Count 194 164 (130-400) K/uL BMP 05/02/22 05/03/22 15:30 07:37 Sodium 136 139 Potassium 4.2 4.2 Chloride 104 108 H Carbon Dioxide 22 24 BUN 22 18 Creatinine 1.47 H 0.93 D Glucose 119 H 102 H Calcium 9.5 8.6 Liver Function 05/02/22 Range/Units 15:30 Total Bilirubin 0.8 (0.2-1.0) mg/dl AST 29 (13-39) U/L ALT 30 (7-52) U/L Alkaline Phosphatase 63 (34-104) U/L Albumin 4.3 (3.4-5.0) gm/dl
[2022-05-03] MEDS ORDERED: STROKE PATIENT DISCHARGE STA (13:55)
--- NOTE | 2022-05-03 13:59 | Discharge Summary ---
Date of Service May 03, 2022 Admission HPI Per Admitting Provider 87-year-old male with PMH of recurrent TIAs, concern for arrhythmia s/p loop recorder, bilateral carotid disease, AAA presented to our ED 05/02 from [place] with strokelike symptoms. Patient was sitting and watching games when he started feeling discomfort in his hip and left chest, he did not feel well, could not describe his feeling, when he stood up he started to pass out after walking 10 to 15 feet, EMT were nearby, sat him in chair, after he got evaluated by EMT he felt little better but then he had slurring of speech which improved by the time he reached to our ED. Patient also complains of t ingling/decreased sensation in his left fingers which lasted for around 15- minute. Patient denies any headache/dizziness/chest pain/palpitations/belly pain/fever/chills/cough/acute changes in bowel or bladder habit in the last 1 week. Some chest discomfort and dizziness during the event today per patient. Patient denies use of tobacco/alcohol/recreational drugs. Full code, medical POA [place] [patient's daughter] No personal history of blood clot or cancer. Medications reviewed with the patient. Family history of AAA in father and some heart disorder in mother. Admission Exam Per Admitting Provider Physical Exam Physical Exam: GENERAL: Alert and oriented x3. NAD, on RA. HEENT: No pallor, no icterus. Pupils equal, round and reactive to light. Oral mucosa moist. NECK: No JVD, no neck masses. HEART: S1 and S2 heard. Regular rate and rhythm. + SM at A and P, no gallop. RESPIRATORY SYSTEM: Normal AP diameter. No accessory muscle use. No wheezing, no crackles. ABDOMEN: Soft, bowel sounds present, nontender, no distention. CENTRAL NERVOUS SYSTEM: No facial droop. Speech is clear. Obeys simple commands. Moves extremities. EXTREMITIES: No edema, no erythema seen. Principal Diagnosis Transient ischemic attack Hypertension Acute Kidney Injury Moderate Aortic Stenosis Discharge Data Allergies Allergy/AdvReac Type Severity Reaction Status Date / Time No Known Allergies Allergy Unverified 05/02/22 18:05 Consultations 05/02/22 17:14 ED Decision to Admit Stat 05/02/22 18:00 Consult Neurology Routine Procedures Performed Laboratory Results WBC 6.86 K/ul (4.8-10.8) 05/03/22 07:37 RBC 4.09 M/uL (4.63-6.08) L 05/03/22 07:37 Hgb 13.0 g/dl (14.0-18.0) L 05/03/22 07:37 POC Hgb 14.6 g/dl (14.0-18.0) 05/02/22 16:01 Hct 36.6 % (40.1-51.0) L 05/03/22 07:37 POC Hct 43 % (42-52) 05/02/22 16:01 MCV 89.5 fL (80.0-100.0) 05/03/22 07:37 MCH 31.8 pg (25.0-34.0) 05/03/22 07:37 MCHC 35.5 g/dL (32.0-36.0) 05/03/22 07:37 RDW Std Deviation 43.9 fL (36.4-46.3) 05/03/22 07:37 RDW Coeff of Leslie 13.4 % (11.5-14.5) 05/03/22 07:37 Plt Count 164 K/uL (130-400) 05/03/22 07:37 MPV 10.1 fL (9.4-12.4) 05/03/22 07:37 Immature Gran % (Auto) 0.1 % 05/03/22 07:37 Neut % (Auto) 47.0 % 05/03/22 07:37 Lymph % (Auto) 32.9 % 05/03/22 07:37 [place] % (Auto) 13.1 % 05/03/22 07:37 Eos % (Auto) 6.3 % 05/03/22 07:37 Baso % (Auto) 0.6 % 05/03/22 07:37 Neut # (Auto) 3.22 K/uL (1.4-6.5) 05/03/22 07:37 Lymph # (Auto) 2.26 K/uL (1.2-3.4) 05/03/22 07:37 [place] # (Auto) 0.90 K/uL (0.24-0.82) H 05/03/22 07:37 Eos # (Auto) 0.43 K/uL (0-0.50) 05/03/22 07:37 Baso # (Auto) 0.04 K/uL (0-0.2) 05/03/22 07:37 Immature Gran # (Auto) 0.01 K/uL (0.00-0.02) 05/03/22 07:37 PT 11.4 Seconds (9.0-12.0) 05/02/22 15:30 INR 1.1 (0.9-1.1) 05/02/22 15:30 APTT 23.6 Seconds (21.0-31.0) 05/02/22 15:30 PTT Ratio 0.9 05/02/22 15:30 POC Sodium 139 mmol/L (135-144) 05/02/22 16:01 Sodium 139 mmol/L (136-145) 05/03/22 07:37 POC Potassium 4.3 mmol/L (3.3-5.0) 05/02/22 16:01 Potassium 4.2 mmol/L (3.5-5.1) 05/03/22 07:37 POC Chloride 105 mmol/L (101-112) 05/02/22 16:01 Chloride 108 mmol/L (98-107) H 05/03/22 07:37 Carbon Dioxide 24 mmol/L (21-32) 05/03/22 07:37 POC Total CO2 23 mmol/L (24-31) L 05/02/22 16:01 Anion Gap 7 (3-11) 05/03/22 07:37 POC Anion Gap 17.0 mmol/L (16-25) 05/02/22 16:01 POC BUN 24 mg/dl (7-18) H 05/02/22 16:01 BUN 18 mg/dl (6-23) 05/03/22 07:37 Creatinine 0.93 mg/dl (0.6-1.4) D 05/03/22 07:37 POC Creatinine 1.3 mg/dl (0.6-1.3) 05/02/22 16:01 Est Cr Clr Drug Dosing 55.2 ml/min 05/03/22 07:37 Est GFR ( Amer) 85.9 ml/min 05/03/22 07:37 Est GFR (Non-Af Amer) 74.1 ml/min 05/03/22 07:37 BUN/Creatinine Ratio 19.4 (10-20) 05/03/22 07:37 Glucose 102 mg/dl (70-99(Fasting)) H 05/03/22 07:37 POC Glucose (other) 118 mg/dl (70-99) H 05/02/22 16:01 Calcium 8.6 mg/dl (8.5-10.1) 05/03/22 07:37 POC Ioniz Calcium Lonny 1.19 mmol/l (1.12-1.32) 05/02/22 16:01 Magnesium 2.3 mg/dl (1.7-2.4) 05/02/22 15:30 Total Bilirubin 0.8 mg/dl (0.2-1.0) 05/02/22 15:30 AST 29 U/L (13-39) 05/02/22 15:30 ALT 30 U/L (7-52) 05/02/22 15:30 Alkaline Phosphatase 63 U/L (34-104) 05/02/22 15:30 Troponin I High Sens 9.3 pg/ml (0-20) 05/03/22 07:37 Total Protein 8.0 gm/dl (6.0-8.3) 05/02/22 15:30 Albumin 4.3 gm/dl (3.4-5.0) 05/02/22 15:30 Globulin 3.7 gm/dl (2.5-4.0) 05/02/22 15:30 Albumin/Globulin Ratio 1.2 (0.9-2) 05/02/22 15:30 Triglycerides 113 mg/dl (0-150) 05/03/22 07:37 Cholesterol 118 mg/dl (0-200) 05/03/22 07:37 LDL Cholesterol, Calc 66 mg/dl 05/03/22 07:37 VLDL Cholesterol, Calc 23 mg/dl (0-30) 05/03/22 07:37 HDL Cholesterol 29 mg/dl 05/03/22 07:37 Cholesterol/HDL Ratio 4.1 (0-5) 05/03/22 07:37 Ethyl Alcohol mg/dL < 10.0 mg/dl (<10.0) 05/02/22 15:30 SARS-CoV-2, RNA, NAAT NEGATIVE (NEGATIVE) 05/02/22 16:35 Impressions Chest X-Ray 05/02/22 15:49 XR chest 1V portable CLINICAL HISTORY: Stroke Like Symptoms COMPARISON STUDY: No previous studies for comparison. FINDINGS: Lower neck/upper medial spinal surgical clips are incidentally noted. There are cardiac monitoring device. Lungs are mildly diminished. Linear left basilar opacity reflects atelectasis. No consolidation to suggest pneumonia. Cardiac size is at the upper limits of normal. There is no evidence for pulmonary edema. IMPRESSION: No acute cardiopulmonary findings. ACT 112: Negative or not required by law. Electronically signed by: Guillermo Sidhu M.D. 05/02/2022 4:[address] 05/02/22 15:49 CT OF THE HEAD WITHOUT CONTRAST CLINICAL HISTORY: Stroke Like Symptoms COMPARISON STUDY: No previous studies for comparison. TECHNIQUE: Helical axial images of the head were obtained without IV contrast. Automated exposure control was utilized for the study. A dose lowering technique was utilized adhering to the principles of ALARA. FINDINGS: No acute intracranial hemorrhage, midline shift or mass effect is present. White matter hypodensity suggests small vessel disease. 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 The ventricular system is unremarkable. The basal cisterns are patent. No extra- axial collections are present. There are no findings to suggest acute dural sinus thrombosis or acute territorial infarct. No significant calvarial abnormalities are present. Visualized portions of the sinuses and mastoid air cells are clear. IMPRESSION: 1. No acute intracranial findings. 2. 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 3. White matter hypodensities suggestive of small vessel disease. ACT 112: Negative or not required by law. Electronically signed by: Guillermo Sidhu M.D. 05/02/2022 4:21 PM Head CTA 05/02/22 15:49 CTA ANGIOGRAPHY OF THE HEAD CLINICAL HISTORY: Stroke Like Symptoms COMPARISON STUDY: No previous studies for comparison. TECHNIQUE: Helical axial images of the head were obtained following uneventful intravenous administration of 98 cc of Optiray. Sagittal and coronal reconstructions were viewed as well as maximal intensity projections on an independent 3-D workstation. Automated exposure control was utilized for the study. A dose lowering technique was utilized adhering to the principles of ALARA. CT DOSE: 1156.90 mGy.cm FINDINGS: Please note that the head CT will be reported separately. There is moderate plaque within the bilateral cavernous carotids without stenosis. Note is made of moderate stenoses of several sylvian branches of the left middle cerebral artery. However, no abrupt vessel cut off is identified. No intracranial aneurysm is identified. Left vertebral artery is dominant. Posterior circulation is intact. There is no dissection or aneurysm within the intracranial vessels. IMPRESSION: 1. No central vessel occlusion. No intracranial aneurysm. 2. 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 However, no vessel cut off identified. 2. Moderate plaque within the bilateral cavernous carotids without significant stenosis. ACT 112: Negative or not required by law. Electronically signed by: Guillermo Sidhu M.D. 05/02/2022 4:38 PM Neck CTA 05/02/22 15:49 CT ANGIOGRAPHY OF THE NECK WITH CONTRAST CLINICAL HISTORY: Stroke Like Symptoms COMPARISON STUDY: No previous studies for comparison. Technique: CT angiography of the carotid and vertebral arteries was obtained using Optiray and 3D reconstruction on an independent workstation. NASCET criteria was utilized. Automated exposure control was utilized for the study. A dose lowering technique was utilized adhering to the principles of ALARA. Findings: Visualized portions of the lung apices are unremarkable. Thyroid gland is surgically absent. There is no cervical lymphadenopathy. No acute cervical spine fracture is noted. The origins of the bilateral vertebral arteries are suboptimally assessed due to artifact. There is suggestion of mild stenosis at the origin of the bilateral vertebral arteries. The left vertebral artery is dominant. There is moderate stenosis of the intracranial portion of the right vertebral artery. There is moderate plaque within the right carotid bifurcation without stenosis. The cervical right internal carotid artery is tortuous. There is no aneurysm or dissection within the major vessels of the neck. There is mild plaque within the left carotid bifurcation. IMPRESSION: 1. No significant stenoses within the bilateral common carotid or cervical internal carotid arteries. Moderate plaque within the right carotid bifurcation without stenosis. Tortuous cervical right internal carotid artery. 2. 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 Suspected mild stenoses at the origins of the bilateral vertebral arteries. ACT 112: Negative or not required by law. Electronically signed by: Guillermo Sidhu M.D. 05/02/2022 4:34 PM Brain MRI 05/02/22 17:14 MRI OF THE BRAIN WITHOUT CONTRAST CLINICAL HISTORY: TIA symptoms COMPARISON STUDY: Head CT and CTA of the head performed earlier today. TECHNIQUE: Utilizing a 1.5 Lela magnet and dedicated coil, multiplanar, multiecho imaging of the brain was performed without IV contrast. FINDINGS: There are no foci of restricted diffusion to suggest acute infarct. No acute intracranial hemorrhage, midline shift or mass effect is present. Ventricular system is unremarkable. Basal cisterns are patent. There are no extra-axial collections. No intracranial masses are identified on this unenhanced exam. A small focus of encephalomalacia within the left occipital lobe represents an old infarct. White matter T2 hyperintense foci represent small vessel disease. There is no calvarial marrow replacement. Flow-voids for the major intracranial vessels are present. IMPRESSION: 1. No acute intracranial findings. 2. 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 3. White matter T2 hyperintense foci suggestive of small vessel disease. ACT 112: Negative or not required by law. Electronically signed by: Guillermo Sidhu M.D. 05/02/2022 7:40 PM Ordered Studies 05/02/22 15:49 CT angio head w con Stat CT angio neck with con Stat CT head/brain wo con Stat 05/02/22 17:14 MR brain wo con Stat Hospital Course (1) TIA (transient ischemic attack): Plan TIA Near syncope --MRI Brain:No acute intracranial findings. 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 White matter T2 hyperintense foci suggestive of small vessel disease. --Head CTA:No central vessel occlusion. No intracranial aneurysm. 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 However, no vessel cut off identified. Moderate plaque within the bilateral cavernous carotids without significant stenosis. --Neck CTA:No significant stenoses within the bilateral common carotid or cervical internal carotid arteries. Moderate plaque within the right carotid bifurcation without stenosis. Tortuous cervical right internal carotid artery. 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 Suspected mild stenoses at the origins of the bilateral vertebral arteries. --ECHO: Left ventricle wall motion is normal. Left ventricle systolic function is normal. EF 55 to 60%. Aortic valve is moderately calcified. Moderate valvular aortic stenosis. Mild aortic regurgitation. Mitral valve leaflets are mildly calcified. Significant mitral regurgitation is absent. There is no mitral valve stenosis. Grade 1 diastolic dysfunction. The aortic root and proximal ascending aorta are normal size --LDL 66 --Symptoms resolved --Appreciate Neurology Input --Continue Plavix, Lipitor --PT/OT eval --Will increase losartan to 50mg daily for better BP control --Needs follow up with Neurology upon discharge -- Also advised to follow-up with cardiology for further evaluation of aortic stenosis. Acute Kidney Injury Cr: 1.4>>0.93 Likely prerenal Monitor renal function Avoid Nephrotoxic agents as able Hypertension Continue metoprolol Increase losartan to 50 mg daily for better blood pressure control Hypothyroidism Continue levothyroxine BPH On Proscar DVT Px: Heparin SQ Code Status Full code Total Time Total Time Spent Total Time Spent (In Minutes): 45 minutes Discharge Plan Discharge Items Patient Disposition: Home - Self-Care Reason For Visit: STROKE LIKE SYMPTOMS Discharge Diagnosis: Transient ischemic attack Hypertension Acute Kidney Injury Moderate Aortic Stenosis Activity: Per Instructions section Exercise/Sports: Gradually increase as tolerated Non-emergency contact: Primary Care Provider and Neurologist Call non-emergency contact if: you have any medication questions, your symptoms worsen, your pain is concerning for you and you have a fever Follow-up/Referrals: PCP,NO [Primary Care Provider] - Diet: Heart Healthy Addtl Attending Provider Instructions: Follow up with your Primary Care physician in 1 week Follow up with your Neurologist in 4 weeks as advised Follow up with your Provisioning Specialist for management of Aortic Stenosis noted on ECHO. --Your Losartan dose is increased to 50mg daily for better blood pressure control. --- Check your blood pressure regularly at home and discuss with your primary care physician for further adjustment of your medications as needed. Seek immediate medical attention if your symptoms reoccur or worsen Please take all medications as instructed on discharge list below. Please call if you have any questions or problems. You can reach a [facility] hospitalist on duty at [facility] 24 hours a day by calling [phone] Risk Factors for Stroke: You can reduce your chances of stroke by working with your medical provider to adopt a healthy lifestyle. Some specific ways to lower your chance of stroke are: * If you are a smoker, now is the time to stop smoking cigarettes * If you are diabetic, improve the control of your blood sugars * Avoid excessive amounts of alcohol * Control high blood pressure * Lose weight if you are overweight * Be sure to lead an active lifestyle * Eat a healthy diet low in salt, cholesterol and fat You should know about other risk factors for stroke that you are unable to control. These include: * Age 55 years or older * Male gender * Certain racial groups: , or / * Family History of Stroke, Mini stroke or Heart Attack * Sickle Cell Disease Follow Up: It is important for you to keep your follow up appointments with your medical provider. Who to Call and When: Medical Emergencies: Call 911 immediately if you experience any of the following warning signs and symptoms of Stroke: * Sudden numbness or weakness of the face, arm or leg, especially on one side of the body * Sudden confusion, trouble speaking or understanding * Sudden trouble seeing in one or both eyes * Sudden trouble walking, dizziness, loss of balance or coordination * Sudden severe headache with no cause Do not delay calling 911 if you experience any warning signs or symptoms of a stroke. Delay in seeking medical attention may affect what treatments can be given to you. . Pending Studies at Discharge: No Stand-Alone Forms: My [facility], Smoking Cessation Medications and DC Order Prescriptions: Continued atorvastatin 40 mg tablet 40 mg PO QPM clopidogrel 75 mg tablet 75 mg PO DAILY levothyroxine [Synthroid] 100 mcg tablet 100 mcg PO DAILY alendronate 35 mg tablet 35 mg PO DAILY ascorbic acid (vitamin C) [Vitamin C] 500 mg tablet 500 mg PO DAILY metoprolol tartrate 50 mg tablet 50 mg PO BID magnesium oxide 500 mg Tablet 500 mg PO 3XWK finasteride 5 mg tablet 5 mg PO DAILY coenzyme Q10 [CoQ-10] 100 mg Capsule 200 mg PO DAILY multivitamin Tablet 1 tab PO DAILY Changed losartan 25 mg tablet 50 mg PO DAILY Qty: 60 0RF Discharge Orders: Discharge Order (Routine); Ordered 05/03/22 Ordered By: Sandor Little Admission Data Admit Date/Time: 05/02/22 17:20 Attending Provider: Sandor Little Admit Provider: Onel Su Primary Care Provider: PCP,NO Other Providers: Onel Su ; Mukesh Marie
--- NOTE | 2022-05-03 15:01 | Electrocardiogram Report ---
Test Reason : Blood Pressure : / mmHG Vent. Rate : 072 BPM Atrial Rate : 072 BPM P-R Int : 138 ms QRS Dur : 104 ms QT Int : 424 ms P-R-T Axes : 051 -32 033 degrees QTc Int : 464 ms Poor data quality, interpretation may be adversely affected Normal sinus rhythm Left axis deviation Abnormal ECG No previous ECGs available Confirmed by Mateo Hdz ([id number]) on 05/03/2022 3:00:52 PM Referred By: Confirmed By:Mateo Hdz
--- NOTE | 2022-05-03 15:18 | Electrocardiogram Report ---
Test Reason : Blood Pressure : / mmHG Vent. Rate : 074 BPM Atrial Rate : 074 BPM P-R Int : 154 ms QRS Dur : 104 ms QT Int : 416 ms P-R-T Axes : 061 -30 039 degrees QTc Int : 461 ms Normal sinus rhythm Left axis deviation Incomplete right bundle branch block Abnormal ECG When compared with ECG of 02-MAY-2022 15:42, (unconfirmed) No significant change was found Confirmed by Mateo Hdz ([id number]) on 05/03/2022 3:17:35 PM Referred By: REFERRED SELF Confirmed By:Mateo Hdz
[2022-05-04 07:05] LABS: Estimated Average Glucose 143 mg/dl; Hemoglobin A1C 6.6 % (4.5-5.6)
[2022-05-04] MEDS ORDERED: MAGNESIUM OXIDE 400 MG TAB PO SCH (09:00)
== END 2022-05-03 14:52 | disposition home or self-care (01) ==
LOC: 2W 15:22 → ED 15:22 → SUATTDRO 17:20 → 2W 19:32